=== PATIENT | male | born 1975 | race Two or more races ===

== ENCOUNTER 2025-01-02 11:57 | Emergency (ER) | payer MEDICAID, SELFPAY ==
[2025-01-02 12:00] VITALS: BMI 29.0
[2025-01-02 12:19] VITALS: BP 122/81; PULSE 118; RESP 18; TEMP 38.7; O2SAT 94
--- NOTE | 2025-01-02 12:39 | EDNOTE_ITS ---
<Statement entered by Elisabet Fung MD - 01/13/25 19:23> As co-signing physician, I was present and available for consult prn. I concur with the plan and care as documented by the midlevel provider. Upper Respiratory Inf. RME/HPI General Chief Complaint: Flu Like Symptoms Stated Complaint: LUNG/BACK PAIN WITH PHLEGM/FEELS HOT X 4 DAYS Time Seen by Provider: 01/02/25 12:22 Arrival date/time: 01/02/25 11:57 This is a 49-year-old male that comes in with complaints of cough, runny nose, congestion, body aches that started about 5 days ago. Patient denies any sick contacts. Patient states that he is not able to sleep because he is coughing so much at night. Patient denies any past medical history. Related Data Previous Rx's ?Medication ?Instructions ?Recorded ibuprofen 800 mg tablet 800 mg PO Q8H PRN pain #30 t abs 01/27/22 oxycodone-acetaminophen 5 mg-325 1 tab PO Q6H PRN pain #20 tabs 02/01/22 mg tablet (Percocet) ibuprofen 800 mg tablet 800 mg PO Q6H PRN pain #14 t abs 01/02/25 promethazine-DM 6.25 mg-15 mg/5 mL 5 ml PO Q6H PRN cou gh #120 mL 01/02/25 oral syrup Allergies Allergy/AdvReac Type Severity Reaction Status Date / Time No Known Allergies Allergy Verified 01/02/25 12:05 Review of Systems Review of Systems Systems Reviewed: All systems reviewed, normal except as documented Past Medical History Past Medical History CARDIAC: Negative Cardiac Disorders or Congestive Heart Failure RESPIRATORY: Negative Chronic Obstructive Pulmonary Disease (COPD) or Asthma GENITOURINARY: Negative Renal Disease ENDOCRINE: Negative Diabetes Mellitus Type 1 or Diabetes Mellitus Type 2 HEMATOLOGIC: Negative Sickle Cell Disease Social History SMOKING STATUS: Never smoker Travel History EBOLA RISK: No ED Exam General General appearance: Present alert and in no apparent distress Head Head exam: Present atraumatic Eye Eye exam: Present normal appearance, PERRL and EOMI ENT ENT exam: Present normal exam, normal oropharynx and mucous membranes moist Neck Neck exam: Present normal inspection, full ROM and trachea midline Chest Chest inspection: Present normal inspection and symmetric chest wall rise Respiratory Respiratory exam: Present normal lung sounds bilaterally Cardiovascular Cardiovascular exam: Present regular rate and normal heart sounds Abdominal Exam Abdominal exam: Present soft Extremities Exam Extremities exam: Present normal inspection and full ROM Back Exam Back exam: Present normal inspection and full ROM Neurological Exam Neurological exam: Present alert, oriented X3 and CN II-XII intact Psychiatric Psychiatric exam: Present normal affect and normal mood Skin Skin exam: Present warm, dry, intact and normal color Course Quality Measures none Orders Category Date Time Status Bedside COVID-19 Antigen Test NOW Care 01/02/25 12:39 Completed Bedside Influenza A&B Antigen Test NOW Care 01/02/25 12:39 Completed Acetaminophen Tab [Tylenol ES Tab] Med 01/02/25 12:39 Discontinued 1,000 mg PO X1 ONE Ibuprofen Tab [Motrin Tab] Med 01/02/25 12:39 Discontinued 800 mg PO X1 ONE Promethazine/Dextromethorph [Phenergan Dm Syrup] Med 01/02/25 12:40 Discontinued 5 ml PO X1 ONE Vital Signs Vital signs: Vital Signs Temperature 101.6 F H 01/02/25 12:19 Pulse Rate 118 H 01/02/25 12:19 Respiratory Rate 18 01/02/25 12:19 Blood Pressure 122/81 01/02/25 12:19 Pulse Oximetry (%) 94 L 01/02/25 12:19 Oxygen Delivery Method Room Air 01/02/25 12:19 Upper Respiratory Infection MDM Narrative MDM Narrative:: Patient's COVID negative. Patient influenza B positive. Patient given Tylenol and ibuprofen for pain. Patient given Promethazine DM for cough. Patient feels better. I discussed patient lab results and length with patient. Patient encouraged to drink plenty of fluids and rest. Patient told the importance of follow up with primary provider and failure to do so can result in worsening in his condition. Patient verbalizes understanding. Will Patient data External records reviewed:: [facility] previous records Clinical information provided by:: patient Social determinants that could affect healthcare access:: none Patient has the following chronic illnesses:: none How is presenting disease/condition affected by chronic disease/condition?: no chronic disease Evaluation data The following diagnostics were reviewed and interpreted by me:: lab results Lab and/or radiology exams considered but not ordered:: none Interpretation Summary: see note Medications / Prescriptions Medications or Prescriptions considered but not ordered:: none Medication administrations:: Medication Administration History Discontinued Medications Acetaminophen (Acetaminophen 500 Mg Tablet) 1,000 mg PO X1 ONE Stop: 01/02/25 12:40 Last Admin: 01/02/25 12:45 Dose: 1,000 mg Documented By: HAYLEY Ibuprofen (Ibuprofen Tab 400 Mg Tablet) 800 mg PO X1 ONE Stop: 01/02/25 12:40 Last Admin: 01/02/25 12:46 Dose: 800 mg Documented By: HAYLEY Promethazine HCl/Dextromethorphan (Promethazine/Dm Syrup 5 Ml Dose) 5 ml PO X1 ONE; Protocol Stop: 01/02/25 12:41 Last Admin: 01/02/25 12:47 Dose: 5 ml Documented By: HAYLEY see mar Consultations Consultation(s) initiated? (list below): No Diagnosis Upper Respiratory Differential Diagnosis: upper respiratory infection, otitis media, viral infection and influenza Most likely diagnosis given after review of the tests above:: influenza b Admission Indicated Admission indicated?: not indicated Admission Request Was there a request for admission?: No Disposition Plan Disposition Plan: Discharge Discharge Attestation Discharge Attestation: The patient and all family members were given an opportunity to ask questions and understood the discharge instructions. Discharge instructions specifically effects, indications for sooner follow up or return to the emergency department, and the expected course of current diagnosis. Patient condition: Stable Discharge Plan Plan Patient Disposition: HOME (Self Care) Patient condition on transfer: Stable Prescriptions/Referrals Prescriptions/Med Rec: New ibuprofen 800 mg tablet 800 mg PO Q6H PRN (Reason: pain) Qty: 14 0RF promethazine-DM 6.25-15 mg/5 mL syrup 5 ml PO Q6H PRN (Reason: cough) Qty: 120 0RF No Action ibuprofen 800 mg tablet 800 mg PO Q8H PRN (Reason: pain) Qty: 30 0RF Rx Instructions: Directions in [place] oxycodone-acetaminophen [Percocet] 5-325 mg tablet 1 tab PO Q6H MDD 4 tabs PRN (Reason: pain) Qty: 20 0RF Problem List Clinical Impression: Influenza B, Cough Patient/Caregiver Discharge Instructions Discharge Activity: activity as tolerated Education Materials: ED Influenza (Adult) Additional Instructions: Patient told to get plenty of rest drink plenty of fluids. Patient needs to follow-up with primary provider in 1 to 2 days. Come back to the emergency room if symptoms change or worsen. Print Language: [place] Stand Alone Forms: [place] Info., Work/School Release, Patient Portal Info Letter PA/[employer] HELPER Supervising Physician PA/[employer] PA[employer] HELPER Supervising Physician: dinora
[2025-01-02 12:45] VITALS: TEMP 38.7
[2025-01-02] MEDS: ACETAMINOPHEN 500 MG TABLET 1000 MG PO (12:45)
[2025-01-02 12:46] VITALS: TEMP 38.7
[2025-01-02] MEDS: IBUPROFEN TAB 400 MG TABLET 800 MG PO (12:46)
[2025-01-02] MEDS: PROMETHAZINE/DM SYRUP 5 ML DOSE PO (12:47)
== END 2025-01-02 13:30 | disposition home or self-care (01) ==
LOC: SERX 13:36
PROVIDERS: Emergency Provider Emergency Medicine
DX: J10.1 Influenza due to other identified influenza virus with other respiratory manifestations (principal)
CPT/HCPCS: 87400; 87811; 99283; A9270